=== PATIENT | female | born 1995 | race Caucasian/White ===

== ENCOUNTER 2017-09-03 01:13 | Emergency (ER) | payer BC ==
[~2017-09-03] VITALS: Ht 162.6 cm; Wt 62.8 kg
[2017-09-03 01:19] VITALS: Ht 162.6 cm; Wt 62.8 kg
[2017-09-03] MEDS ORDERED: KETOROLAC TROMETHAMINE 30 MG/ML VIAL IV STA (01:26)
[2017-09-03] MEDS ORDERED: LIDOCAINE HCL 2% VISC SOLN 20 ML UDC MT STA (01:26)
[2017-09-03] MEDS ORDERED: ACETAMINOPHEN 500 MG TAB PO STA (01:26)
[2017-09-03 02:00] LABS: BASO % 0.1 %; BASO ABS # 0.01 K/uL (0-0.2); COMPLETE YES; EOS % 0.1 %; HEMATOCRIT 41.1 % (37-47); IG% 0.3 %; LYMPH % 14.6 %; LYMPH ABS # 1.09 K/uL (1.2-3.4); MEAN CELL VOLUME 85.3 fL (80-100); MEAN CORPUSCULAR HEMOGLOBIN 25.9 pg (25-34); MEAN CORPUSCULAR HGB CONC 30.4 g/dl (32-36); MEAN PLATELET VOLUME 10.5 fL (7.4-10.4); MONO % 9.2 %; NEUT % 75.7 %; PLATELET COUNT 253 K/uL (130-400); RED BLOOD COUNT 4.82 M/uL (4.2-5.4); WHITE BLOOD COUNT 7.49 K/uL (4.8-10.8)
[2017-09-03 02:16] LABS: BUN/CREATININE RATIO 14.9 (10-20); CALCIUM 9.1 mg/dl (8.5-10.1); CREATININE 0.84 mg/dl (0.60-1.20); POTASSIUM 3.6 mmol/L (3.5-5.1)
[2017-09-03 02:23] LABS: PREG INTERNAL NEGATIVE QC NEG CLEAR BACKGROUND; PREG INTERNAL POSITIVE QC POS CONTROL LINE
[2017-09-03 02:53] LABS: INFLUENZA A PCR Neg for Influ A (NEG); INFLUENZA B PCR Neg for Influ B (NEG)
[2017-09-03 03:05] VITALS: BP 118/73; PULSE 90; TEMP 37.1; O2SAT 98
--- NOTE | 2017-09-03 03:07 | EMERGENCY ROOM VISIT NOTE ---
History First contact with patient: 01:23 Chief Complaint: FLU LIKE SX Stated Complaint: FEVER,NECK/BACK STIFF,PAIN,BUMBS IN THROAT,HEADACH History of Present Illness The patient is a 22 year old female who presents to the Emergency Room with complaints of cough, congestion, sore throat, body aches the past several days who was sick with sore throat 3 weeks ago and was given antibiotics are negative strep test by urgent care. No temperature was taken. She is tolerate by mouth fluids and food. No travel outside the [place]. Patient denies chest pain , dyspnea, abdominal pain, neck stiffness, earache, sinus pain or congestion. Review of Systems See HPI for pertinent positives & negatives. A total of 10 systems reviewed and were otherwise negative. Past Medical/Surgical History none Social History Smoking Status: Current Some Day Smoker Drug Use: none Occupation Status: [employer] student Physical Exam Vital Signs Date Time Temp Pulse Resp B/P (MAP) Pulse Ox O2 Delivery O2 Flow Rate FiO2 09/03/17 01:19 38.3 129 20 128/91 100 Room Air Physical Exam VITALS: Vitals are noted on the nurse's note and reviewed by myself. Vital signs febrile GENERAL: Pleasant female, in no acute distress, nondiaphoretic, well-developed well-nourished. SKIN: The skin was without rashes, erythema, edema, or bruising. There is no tenting of the skin. Capillary reflex less than 2 seconds. HEAD: Normocephalic atraumatic. EARS: External auditory canals clear, tympanic membranes pearly torres without erythema or effusion bilaterally. EYES: Pupils equal round and reactive to light and accommodation. Conjunctivae without injection, sclerae without icterus. Extraocular movements intact. NOSE: Patent, turbinates without inflammation or discharge. No sinus tenderness. MOUTH: Mucous membranes moist. Pharynx without erythema or exudate. Uvula midline. Airway patent. Tongue does not deviate. NECK: Supple without nuchal rigidity. No lymphadenopathy. No thyromegaly. Cervical spine is nontender. No JVD. No meningeal signs HEART: Regular rate and rhythm without murmurs gallops or rubs. LUNGS: Clear to auscultation bilaterally without wheezes, rales or rhonchi. No dullness to percussion. No retractions or accessory muscle use. ABDOMEN: Positive bowel sounds x 4. Normal tympanic percussion. Soft, nontender, without masses or organomegaly. Blancas sign negative. No guarding or rebound tenderness. MUSCULOSKELETAL: No muscle atrophy, erythema, or edema noted. NEURO: Patient was alert and oriented to person place and time. Normal sensation to light and sharp touch. No focal neurological deficits. Medical Decision & Procedures Laboratory Results 09/03/17 01:40 Red Blood Count 4.82, Mean Corpuscular Volume 85.3, Mean Corpuscular Hemoglobin 25.9, Mean Corpuscular Hemoglobin Concent 30.4, Mean Platelet Volume 10.5, Neutrophils (%) (Auto) 75.7, Lymphocytes (%) (Auto) 14.6, Monocytes (%) (Auto) 9.2, Eosinophils (%) (Auto) 0.1, Basophils (%) (Auto) 0.1, Neutrophils # (Auto) 5.67, Lymphocytes # (Auto) 1.09, Monocytes # (Auto) 0.69, Eosinophils # (Auto) 0.01, Basophils # (Auto) 0.01 09/03/17 01:40 Test 09/03/17 00:00 09/03/17 01:40 Influenza Type A (RT-PCR) Neg for Influ A (NEG) Influenza Type A Antigen Neg for Influ A (NEG) Influenza Type B Antigen Neg for Influ B (NEG) Influenza Type B (RT-PCR) Neg for Influ B (NEG) White Blood Count 7.49 K/uL (4.8-10.8) Red Blood Count 4.82 M/uL (4.2-5.4) Hemoglobin 12.5 g/dL (12.0-16.0) Hematocrit 41.1 % (37-47) Mean Corpuscular Volume 85.3 fL (80-100) Mean Corpuscular Hemoglobin 25.9 pg (25-34) Mean Corpuscular Hemoglobin Concent 30.4 g/dl (32-36) Platelet Count 253 K/uL (130-400) Mean Platelet Volume 10.5 fL (7.4-10.4) Neutrophils (%) (Auto) 75.7 % Lymphocytes (%) (Auto) 14.6 % Monocytes (%) (Auto) 9.2 % Eosinophils (%) (Auto) 0.1 % Basophils (%) (Auto) 0.1 % Neutrophils # (Auto) 5.67 K/uL (1.4-6.5) Lymphocytes # (Auto) 1.09 K/uL (1.2-3.4) Monocytes # (Auto) 0.69 K/uL (0.11-0.59) Eosinophils # (Auto) 0.01 K/uL (0-0.5) Basophils # (Auto) 0.01 K/uL (0-0.2) RDW Standard Deviation 44.7 fL (36.4-46.3) RDW Coefficient of Variation 14.4 % (11.5-14.5) Immature Granulocyte % (Auto) 0.3 % Immature Granulocyte # (Auto) 0.02 K/uL (0.00-0.02) Anion Gap 8.0 mmol/L (3-11) Est Creatinine Clear Calc Drug Dose 92.3 ml/min Estimated GFR () 116.0 Estimated GFR (Non- 100.1 BUN/Creatinine Ratio 14.9 (10-20) Calcium Level 9.1 mg/dl (8.5-10.1) Human Chorionic Gonadotropin, Qual NEG (NEG) Monoscreen NEG (NEG) Medications Administered Medications (Trade) Dose Ordered Sig/Elli Route Start Time Stop Time Status Last Admin Dose Admin Acetaminophen (Tylenol Tab) 1,000 mg NOW STAT PO 09/03/17 01:26 09/03/17 01:28 DC 09/03/17 01:55 1,000 MG Ketorolac Tromethamine (Toradol Inj) 30 mg NOW STAT IV 09/03/17 01:26 09/03/17 01:28 DC 09/03/17 01:56 30 MG Lidocaine HCl (Viscous Lidocaine 2% Soln) 10 ml NOW STAT MT 09/03/17 01:26 09/03/17 01:28 DC 09/03/17 01:55 10 ML ED Course Prior records/ancillary studies reviewed. Triage Nursing notes reviewed. Additional history obtained from friend The patient's history was concerning for fever. Differential diagnosis: Etiologies such as viral syndrome, otitis, pharyngitis, pneumonia, influenza, meningitis, mono, sepsis, bacteremia, as well as others were entertained. Physical examination: Patient is alert, interactive well-appearing ER treatment provided: Viscous lidocaine, Toradol On reassessment the patient felt better. Diagnostics interpreted by me: The labs revealed a strep test, negative mono no leukocytosis Imaging studies: Chest x-ray with no acute consolidation, pneumothorax or free air per my interpretation This appears to be consistent with URI and fever most likely viral in etiology. Patient is well-appearing. No signs of meningitis. No pneumonia. Stable vital signs. She is advised take cold medicines as directed and to follow-up with health services in a few days or here in the ER sooner for high fevers, neck stiffness, lethargy, worsening signs or symptoms or as needed. By the evaluation outlined above emergent etiologies such as otitis, pharyngitis, pneumonia, meningitis, urinary tract infection, sepsis, bacteremia, as well as others were deemed relatively unlikely. The pt informed about the findings as listed above. All questions were answered and pleased with the treatment. Return instructions were outlined and the patient was discharged in stable condition. Outpatient prescription management: Viscous lidocaine Referral: The patient was referred back to their primary care physician/S for follow-up in 2 to 3 days for a recheck of the current condition. Medical Decision As above Medication Reconcilliation Current Medication List: was personally reviewed by me Blood Pressure Screening Patient's blood pressure: Normal blood pressure Impression Primary Impression: Upper respiratory infection Additional Impression: Fever Departure Information Dispostion Home / Self-Care Condition GOOD Referrals No Doctor, Assigned (PCP) Patient Instructions My [facility] Additional Instructions Acetaminophen(Tylenol) may be used for fever or pain. Use 1000mg every six hours as needed. Avoid using more than 3000mg in a 24 hour period. (AND/OR) Ibuprofen(Motrin, Advil) may be used for fever or pain. Use 600mg every six hours as needed. Take with food. Avoid using more than 2400mg in a 24 hour period. Do not use 2400mg per day for more than three consecutive days without physician direction. Prolonged inappropriate use can lead to stomach upset or ulcers. Afrin nasal spray: 2-3 sprays to each nostril twice daily as needed for congestion. Do not use for more than 3-4 days because it can lead to worsening rebound congestion. Pseudoephedrine(Sudaphed): 30-60mg every 6 hours as needed for nasal congestion. Do not take this with other stimulant products or supplements. Viscous lidocaine: 10 mL's every 6 hours as needed for sore throat. Rest and drink plenty of fluids. Controlling your fever with Tylenol and Ibuprofen as above will make you feel better. Wash your hands after nose blowing, sneezing, or coughing. Most germs are spread through contact, therefore improper hygiene may result in your close contacts and loved ones becoming ill just like you. Continue current medications. Return to the ER for severe headache, neck stiffness, chest pain, difficulty breathing, fevers, vomiting, worsening of your condition, or as needed. Follow up with your primary physician this week for a recheck of your current condition. Problem Qualifiers Primary Impression: Upper respiratory infection URI type: unspecified URI Qualified Codes: J06.9 - Acute upper respiratory infection, unspecified
[2017-09-03] MEDS ORDERED: LIDO2SOL19 PO (03:08)
--- NOTE | 2017-09-03 06:43 | DIAGNOSTIC IMAGING REPORT ---
CHEST 2 VIEWS ROUTINE CLINICAL HISTORY: Cough. Fever. COMPARISON STUDY: No previous studies for comparison. FINDINGS: Lung volumes are normal. No pneumothorax or pleural effusion is present. Pulmonary vascularity is normal. Cardiomediastinal silhouette is normal. There is no consolidation to suggest pneumonia. IMPRESSION: No acute cardiopulmonary findings. Electronically signed by: Olayinka Jeffery M.D. 09/03/2017 6:42 AM Dictated Date/Time: 09/03/2017 6:42 AM
[2017-09-04 13:58] LABS: EBV EARLY ANTIGEN AB < 9.00 U/ML
== END 2017-09-03 03:16 | disposition home or self-care (01) ==
LOC: C.EDB 01:15
DX: J06.9 Acute upper respiratory infection, unspecified (principal); R50.9 Fever, unspecified; F17.210 Nicotine dependence, cigarettes, uncomplicated